=== PATIENT | male | born 1960 | race Caucasian/White ===

== ENCOUNTER 2024-01-24 10:06 | Outpatient (CLI) | payer MEDICARE, SELFPAY ==
--- NOTE | 2024-01-24 10:00 | CRLHL7_ITS ---
For Patients: As a result of the Century Cures Act, medical imaging exams and procedure reports are released immediately into your electronic medical record. You may view this report before your referring provider. If you have questions, please contact your health care provider. CLINICAL INFORMATION: Pulmonary nodule follow-up. TECHNIQUE: Noncontrast CT of the chest was obtained. Coronal and sagittal reformatted images were obtained. Radiation Dose Estimate (Total Exam DLP): 265 mGy-cm. COMPARISON: Low-dose chest CT 07/14/2023. FINDINGS: Chest: Thyroid: Visualized portions are unremarkable. Lungs: No focal airspace opacities or pleural effusions. Stable bilateral pulmonary nodules measuring up to 9 mm in the right lower lobe (series 3, image 71). No new or suspicious pulmonary nodules are identified. Heart/Pericardium: Coronary atherosclerotic calcifications. Heart normal in size. No pericardial effusions. Lymph Nodes: No significant axillary, mediastinal, or hilar lymphadenopathy. Upper Abdomen : No acute findings in the visualized portions. Musculoskeletal: Visualized osseous structures demonstrate diffuse degenerative changes. IMPRESSION: 1. Stable bilateral pulmonary nodules measuring up to 9 mm in the right lower lobe. No new or suspicious pulmonary nodules. 2. Recommend return to screening annual low-dose surveillance chest CT. Please note that all CT scans at this facility use dose modulation, iterative reconstruction, and/or weight-based dosing when appropriate to reduce radiation dose to as low as reasonably achievable. Dictated by Isauro Plascencia MD @ 01/26/2024 11:08:10 AM (Electronically Signed)
== END 2024-01-24 10:07 | disposition home or self-care (01) ==
LOC: CT 10:08
PROVIDERS: PCP Family Medicine; Visit Provider Surgery
DX: R91.8 Other nonspecific abnormal finding of lung field (principal); R91.1 Solitary pulmonary nodule
CPT/HCPCS: 71250